=== PATIENT | male | born 1985 | race Two or more races ===

== ENCOUNTER 2021-03-13 08:20 | Inpatient (IN) | payer BC ==
[2021-03-13] VITALS (10 sets, daily range): BP systolic 119–147; BP diastolic 69–85
[~2021-03-13] VITALS: Ht 180.3 cm; Wt 99.8 kg
--- NOTE | 2021-03-13 08:36 | NUR ---
BIBS FOR C/O ANAL PAIN, POSSIBLE HEMORRHOID NOTED THIS MORNING. THE PATIENT RATES PAIN 10/10. WILL CONTINUE TO MONITOR THE PATIENT.
--- NOTE | 2021-03-13 08:42 | NUR ---
Note meidinora in EDM - 03/13/21 at 1222 by LEODAN THE PATIENT BIBS FOR C/O ANAL PAIN, POSSIBLE HEMORRHOID NOTED THIS MORNING. THE PATIENT IS ALERT AND ORIENTED X4. RATES ANAL PAIN 04/07. WILL CONTINUE TO MONITOR THE PATIENT.
[2021-03-13] MEDS ORDERED: CEPHALEXIN MONOHYDRATE 500 MG CAPSULE PO ONE (09:00)
[2021-03-13] MEDS ORDERED: TDAP [DIPH/PERTUSSIS/TET] 0.5 ML VIAL IM ONE (09:00)
[2021-03-13] MEDS ORDERED: HYDROMORPHONE 1 MG/1 ML DISP.SYRIN IM ONE (09:30)
[2021-03-13] MEDS ORDERED: HYDROMORPHONE 1 MG/1 ML DISP.SYRIN ONE (09:49)
--- NOTE | 2021-03-13 11:37 | NUR ---
COVID SWAB DONE AND SENT TO THE LAB
[2021-03-13] MEDS ORDERED: TRAM50TA2 PO (12:03)
--- NOTE | 2021-03-13 12:04 | NUR ---
CM NURSING FUNERAL DIRECTOR/EMBALMER FOR A MS BED.
--- NOTE | 2021-03-13 13:23 | NUR ---
NURSING SUP GAVE [id number]. MARLO IS THE NURSE.
[2021-03-13] MEDS ORDERED: MAG HYDROX/AL HYDROX/SIMETH 30 ML UDC PO PRN (13:30)
[2021-03-13] MEDS ORDERED: ONDANSETRON HCL/PF 4 MG/2 ML VIAL IVP PRN (13:30)
[2021-03-13] MEDS ORDERED: ZOLPIDEM TARTRATE 5 MG TABLET PO PRN (13:30)
[2021-03-13] MEDS ORDERED: ACETAMINOPHEN 325 MG TABLET PO PRN (13:30)
[2021-03-13] MEDS ORDERED: Z GUARD REMEDY 2 OZ OINT TP PRN (13:30)
[2021-03-13] MEDS ORDERED: MAGNESIUM HYDROXIDE 30 ML UDC PO PRN (13:30)
--- NOTE | 2021-03-13 13:44 | NUR ---
REPORT GIVEN TO MARLO BILL FOR CONCHIS.
--- NOTE | 2021-03-13 14:15 | NUR ---
PATIENT TRANSFERRED TO MED SURG ROOM, IN STABLE CONDITION.
--- NOTE | 2021-03-13 14:20 | NUR ---
RN MS NOTES RECEIVED PT FROM E.R. STAFF VIA ARY, PT IS AWAKE, ALERT AND ORIENTED, NO COMPLAINT OF PAIN AT THIS TIME, BREATHING PATTERN NORMAL, ON ROOM AIR, ROOM SET UP ORIENTATION PRIOVIDED TO PT, VERBALIZED UNDERSTANDING, VITAL SIGNS TAKEN AND RECORDED, ADMITTING ORDERS RECEIVED FROM MD, WILL CONTINUE TO MONITOR.
--- NOTE | 2021-03-13 16:56 | NUR ---
RN MS NOTES PT AWAKE, ALERT AND ORIENTED, RESPIRATIONS NORMAL, CALL LIGHT WITHIN REACH, KEPT NPO, AT BEDISDE, RECEIVED ORDER FROM DR JACKSON FOR REDUCTION OF RECTAL PROLAPSE , CAME TO SEE PT, ALL CONSENTS SIGNED BY PT, PICKED UP BY O.R. STAFF VIA BED, IN STABLE CONDITION.
[2021-03-13] MEDS ORDERED: ANESTHESIA TRAY IN PYXIS 1 EA TRAY MC ONE (16:59)
[2021-03-13] MEDS ORDERED: MIDAZOLAM HCL 2 MG/2ML VIAL ONE (17:00)
[2021-03-13] MEDS ORDERED: FENTANYL PF 100MCG/2ML AMPUL ONE ×2 (17:00→18:24)
[2021-03-13] MEDS ORDERED: BUPIVACAINE MPF 0.5% W/EPI INJ 30 ML VIAL ONE (17:07)
[2021-03-13] MEDS ORDERED: BUPIVACAINE MPF W/EPI 0.25% 30 ML VIAL ONE (17:07)
--- NOTE | 2021-03-13 19:00 | NUR ---
RN MS NOTES PT BACK FROM SURGERY VIA BED, PT SLEEPY BUT EASY TO AROUSE, NO COMPLAINT AT THIS TIME, KEPT WARM AND COMFORTABLE IN BED, POST-OP ORDERS RECEIVED FROM MD, ENDORSED TO AGRONOMY LOCATION MANAGER RN FOR CONTINUITY OF CARE.
--- NOTE | 2021-03-13 19:50 | NUR ---
RN NOTES S/P HEMORROIDECTOMY, BY DR. JACKSON, UNDER GENERAL ANESTHESIA, ALERT AND ORIENTED, STABLE ON ROOM AIR, 8/10 PAIN, RECTAL DRESSING, WITH MINIMAL BLEEDING, FULL LIQUID DIET FOR NOW, VS STABLE, WILL CONTINUE TO MONITOR.
[2021-03-13] MEDS ORDERED: MORPHINE SULFATE INJ 2 MG/ML DISP.SYRIN IM PRN (20:00)
[2021-03-13] MEDS: MORPHINE SULFATE INJ 2 MG/ML DISP.SYRIN IV PRN (21:18)
[2021-03-14] MEDS: MORPHINE SULFATE INJ 2 MG/ML DISP.SYRIN IV PRN ×3 (02:47→10:54)
--- NOTE | 2021-03-14 06:30 | NUR ---
S/P HEMORROIDECTOMY BY DR. JACKSON, ALERT/ORIENTED X4, ROOM AIR, PAIN OF 8/10, MORPHINE 2 MG Q4HRS, RECTUM HAS SMALL XEROFORM TUCKED INSIDE, NO ACTIVE BLEEDING, VOIDED IN TOILET, REMAINED ON FULL LIQUID DIET. EDUCATED ON POST OP CARE AND PRECAUTION. POSSIBLE DISCHARGE TODAY.
[2021-03-14 06:32] LABS: BASOPHILS % (AUTO) 0.1 % (0.0-2.0); EOSINOPHILS % (AUTO) 0.3 % (0.0-6.0); HEMATOCRIT 45 % (39-51); HEMOGLOBIN 15.6 g/dL (13.5-17.5); LYMPHOCYTES # (AUTO) 2.1 K/uL (0.8-4.8); LYMPHOCYTES % (AUTO) 22.4 % (20.0-44.0); MEAN CORPUSCULAR HGB CONC 35 g/dl (31.0-36.0); MEAN CORPUSCULAR VOLUME 87 fL (80-96); MONOCYTES # (AUTO) 0.9 K/uL (0.1-1.30); MONOCYTES % (AUTO) 9.6 % (2.0-12.0); NEUTROPHILS # (AUTO) 6.4 K/uL (1.8-8.9); NEUTROPHILS % (AUTO) 67.6 % (43.0-81.0); PLATELET COUNT (AUTO) 202 K/uL (150-450); WHITE BLOOD COUNT (AUTO) 9.5 K/uL (4.3-11.0)
[2021-03-14 07:04] LABS: POTASSIUM 3.9 mmol/L (3.5-5.1)
--- NOTE | 2021-03-14 07:16 | NUR ---
RN NOTES SEEN PATIENT IN BED RESTING, AWAKE AND VERBALLY RESPONSIVE. A/O X4, ABLE TO MAKE NEEDS KNOWN. BREATHING EVEN AND UNLABORED, TOLERATING ROOM AIR. S/P HEMORROIDECTOMY BY DR. JACKSON, PAIN MEDICATION MORPHINE PROVIDED BY SURETY BOND AGENT RN. RECTAL AREA HAS SMALL XEROFORM TUCKED INSIDE, NO ACTIVE BLEEDING. CONTINUES ON FULL LIQUID DIET. IV LINE INTACT AND PATENT. SAFETY PRECAUTIONS IN PLACE. WILL CONTINUE TO MONITOR.
[2021-03-14 07:20] LABS: CALCIUM, SERUM 9.3 mg/dL (8.5-10.1); CREATININE 1.1 mg/dL (0.6-1.3); PHOSPHORUS 4.2 mg/dL (2.5-4.9)
[2021-03-14 08:00] VITALS: BP 121/69
[2021-03-14] MEDS ORDERED: norco PO (11:23)
--- NOTE | 2021-03-14 12:45 | NUR ---
RN NOTES PATIENT SEEN BY DR. JACKSON AND DR. GREGG, CLEARED FOR DISCHARGE TO HOME TODAY. DISCHARGE INSTRUCTION AND EDUCATION PROVIDED TO PATIENT, VERBALIZED UNDERSTANDING. EXPLAINED PRESCRIPTION MEDICATION AND AFTERCARE S/P SURGERY. PRESCRIPTION FORM GIVEN TO PATIENT. DISCHARGE FORM AND BELONGINGS LIST FORM SIGNED BY PATIENT; ALL BELONGINGS ACCOUNTED FOR. NAME ARMBAND AND IV LINES REMOVED. NO SKIN ISSUES NOTED. PATIENT AMBULATED TO THE LOBBY ACCOMPANIED BY AND STAFF AND PICKED UP BY VIA PRIVATE CAR. CHARGE NURSE AND MD AWARE OF DISCHARGE.
== END 2021-03-14 12:30 | disposition home or self-care (01) | DRG 349 ==
LOC: ER 08:30 → MED 13:38
PROVIDERS: ADMIT Student in an Organized Health Care Education/Training Program; ATTEND Student in an Organized Health Care Education/Training Program
PROC: 06LY0CC Occlusion of Hemorrhoidal Plexus with Extraluminal Device, Open Approach (ICD-10-PCS; principal; 2021-03-13)
DX: K64.8 Other hemorrhoids (principal); G89.29 Other chronic pain; Z82.49 Family history of ischemic heart disease and other diseases of the circulatory system; E86.0 Dehydration; R79.89 Other specified abnormal findings of blood chemistry
CPT/HCPCS: 36415; 80048-TC; 80061-TC; 83735-TC; 84100-TC; 85025-TC; 87081-TC; 88304-TC; C9803; G0378; J0690; J1100; J1170; J1885; J2250; J2270; J2405; J2704; J3010; J3490; J7030; J7050

== ENCOUNTER 2021-03-22 07:42 | Emergency (ER) | payer BC ==
[~2021-03-22] VITALS: Ht 180.3 cm; Wt 95.3 kg
[~2021-03-22 07:42] MED LIST: norco PO
--- NOTE | 2021-03-22 08:05 | NUR ---
THE PATIENT BIBS C/O SEVERE PAIN & BLEEDING ON SURGICAL SITE. PT HAD HEMORRHOIDECTOMY LAST WED PER PT. THE PATIENT RATES PAIN 8/10. IN ROOM AIR AND DENIES SOB. RESPIRATION REGULAR AND UNLABORED. WARM BLANKET PROVIDED FOR COMFORT. WILL CONTINUE TO MONITOR THE PATIENT.
[2021-03-22] MEDS ORDERED: IV NS 0.9% 1,000 ML BAG IV ONE (08:30)
[2021-03-22] MEDS ORDERED: HYDR-3972 PO (08:32)
--- NOTE | 2021-03-22 08:47 | NUR ---
STARTED LAC G 18, BLOOD SPECIMEN COLLECTED AND SENT TO THE LAB. THE LINE IS SALINE LOCKED.
[2021-03-22 08:57] LABS: BASOPHILS % (AUTO) 0.6 % (0.0-2.0); EOSINOPHILS % (AUTO) 1.1 % (0.0-6.0); HEMATOCRIT 45 % (39-51); HEMOGLOBIN 15.7 g/dL (13.5-17.5); LYMPHOCYTES # (AUTO) 1.9 K/uL (0.8-4.8); LYMPHOCYTES % (AUTO) 28.9 % (20.0-44.0); MEAN CORPUSCULAR HGB CONC 35 g/dl (31.0-36.0); MEAN CORPUSCULAR VOLUME 85 fL (80-96); MONOCYTES # (AUTO) 0.7 K/uL (0.1-1.30); MONOCYTES % (AUTO) 10.7 % (2.0-12.0); NEUTROPHILS # (AUTO) 3.8 K/uL (1.8-8.9); NEUTROPHILS % (AUTO) 58.7 % (43.0-81.0); PLATELET COUNT (AUTO) 267 K/uL (150-450); RED BLOOD CELL COUNT(AUTO) 5.28 MIL/uL (4.5-6.0); WHITE BLOOD COUNT (AUTO) 6.5 K/uL (4.3-11.0)
[2021-03-22 09:08] LABS: CALCIUM, SERUM 9.4 mg/dL (8.5-10.1); CREATININE 1.2 mg/dL (0.6-1.3)
--- NOTE | 2021-03-22 09:09 | NUR ---
COVID SWAB DONE AND SENT TO THE LAB
[2021-03-22 09:35] VITALS: BP 128/76
--- NOTE | 2021-03-22 09:35 | NUR ---
Patient discharged to home in stable condition. Written and verbal after care instructions given. Patient verbalizes understanding of instruction.
== END 2021-03-22 09:36 | disposition home or self-care (01) ==
LOC: ER 07:45
DX: I97.620 Postprocedural hemorrhage of a circulatory system organ or structure following other procedure (principal); Z20.822 Contact with and (suspected) exposure to COVID-19; R00.0 Tachycardia, unspecified
CPT/HCPCS: 36415; 80048; 85025; 85730; 87426; 96360; 99283; C9803; J7030